=== PATIENT | female | born 1970 | race African-American/Black ===

== ENCOUNTER 2018-06-25 08:04 | Emergency (ER) | payer MEDICAID ==
[~2018-06-25] VITALS: Ht 170.2 cm; Wt 81.6 kg
--- NOTE | 2018-06-25 08:17 | NUR ---
PT WALKED INTO EMERGENCY ROOM WITH C/C OF NOT FEELING WELL FOR 8 DAYS PT CARRING BAG WITH BELONGINGS
[2018-06-25] MEDS ORDERED: LITHIUM CARBONATE (300 MG CAP) 300 MG CAPSULE PO STA (08:33)
[2018-06-25] MEDS ORDERED: OLANZAPINE 5 MG TABLET ONE (08:37)
--- NOTE | 2018-06-25 08:52 | NUR ---
PT HOMELESS SEEN BY MEDICATIONS GIVEN PT SEEN BY KARRIE AND GIVEN TAP CARD WILL BE DISCHARGED ON HER OWN GIVEN HOMELESS INTERMEDIATE LOCATIONS.
--- NOTE | 2018-06-25 08:53 | NUR ---
Social service consult requested by ED CRN Antonio for homelessness. Pt. is a 48 year old female who came to [facility] ED complaining of stomach pain. SW met with pt. bedside. Pt. is alert and oriented x 4. Pt. had a bag of belongings bedside. Pt. appears disheveled. Pt. is pleasant and cooperative with SW during the assessment. Pt. states she usually resides at the [facility] and likes it there. Pt. states she usually hangs out at the [employer] located by the [facility] since it is open 24 hours. Pt. has a mental health diagnosis of Bipolar Schizoaffective Disorder. Pt. is compliant with her medications. Pt. takes [place] and Zyprexa. Pt.denies current drug and alcohol use. 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 Pt. denies suicidal and homicidal ideations and visual/auditory hallucinations at this time. SW offered pt. [facility] program list [id number] and showed pt. the different winter shelters available in the [place] and [facility]. Pt. accepted the [facility] Program list along with the following resources: Mental Health clinics [facility] Homeless Program [address] [place], [place] [address] Homeless mentally ill people may be seen at [facility] on a walk-in basis. [facility] [address], [address]nd [place] [address] Main Number: [facility] ([facility]): Contact Radha Weeks [facility] [address] [place], [place] [id number] [place] [address] Operation Hours: MON - FRI 8:00 a.m. - 5:00 p.m. Walk In Hours: MON - FRI 8:00 a.m. - 5:00 p.m. Services by Age: Adults and Older Adults [facility] [address], [address] [place]. [place] Hours: M, T, Th, F 8:30AM-4:30PM Walk-ins allowed Provide medical screening and pharmacy [facility] [address] [place] [address] Hours M-F 8AM-3:30PM Walk-ins allowed Provide medical screening and pharmacy [facility] [address] [facility]. [place] [id number] Hours 8AM-4:30PM Walk-ins allowed Provide medical screening and pharmacy Alcohol and Drug Treatment Programs [facility] Substance Abuse Self-helpline ([facility]) Contact number . Call the hotline and the silk washing machine operator will screen and link individual to an appropriate program. Must have Medi-lorenzo or be Med-lorenzo eligible. [facility] [address] [facility]. [place] [address] [facility] [address] [facility]. [place] [id number] [facility] (Orthodoxy based) [address] [facility] [place] [address] (Six months program and need to work for 8 hrs per day while in treatment) [facility] (No insurance required) [address] [place] [address] offered pt. breakfast, however, pt. declined and wanting juice. Juice and TAP card was given to the pt. Homeless Patient Waiver Form was signed by pt. and placed in pt's chart. No other social service needs are requested at this time.
[2018-06-25 08:59] LABS: APPEARANCE,URINE CLEAR (CLEAR); BILIRUBIN,URINE NEGATIVE (NEGATIVE); BLOOD, URINE NEGATIVE Ery/uL (NEGATIVE); COLOR,URINE YELLOW (YELLOW); KETONES,URINE NEGATIVE (NEGATIVE); LEUKOCYTE ESTERASE ,URINE 1+ (NEGATIVE); NITRITE, URINE NEGATIVE (NEGATIVE); PROTEIN,URINE NEGATIVE (NEGATIVE); UGLUCOSE NEGATIVE (NEGATIVE); UROBILINOGEN,URINE 0.2 EU/dL (0.2)
[2018-06-25] MEDS ORDERED: OLANZAPINE 5 MG/TAB.RAPDIS PO ONE (09:00)
[2018-06-25 09:03] LABS: BACTERIA,URINE 1+ /HPF (None Seen); SQUAMOUS EPITHELIAL CELL,UR Many /HPF (None Seen)
[2018-06-25 09:17] VITALS: BP 141/81
== END 2018-06-25 09:18 | disposition home or self-care (01) ==
LOC: ER 08:10
DX: F31.9 Bipolar disorder, unspecified (principal); F20.9 Schizophrenia, unspecified; I10 Essential (primary) hypertension; Z88.8 Allergy status to other drugs, medicaments and biological substances
CPT/HCPCS: 81001; 84703; 87086; 99284; A4606; 81000-TC